=== PATIENT | male | born 1985 | race African-American/Black ===

== ENCOUNTER 2017-04-08 08:02 | Emergency (ER) | payer OTHER ==
[2017-04-08 08:19] VITALS: O2SAT 95
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
[2017-04-08 08:30] VITALS: BP 124/82; PULSE 62; RESP 14; TEMP 97.5
== END 2017-04-08 08:29 | disposition home or self-care (01) ==
DX: S39.012A Strain of muscle, fascia and tendon of lower back, initial encounter (principal); S70.11XA Contusion of right thigh, initial encounter; V49.49XA Driver injured in collision with other motor vehicles in traffic accident, initial encounter; Y92.410 Unspecified street and highway as the place of occurrence of the external cause; Y99.8 Other external cause status; Y93.89 Activity, other specified